=== PATIENT | male | born 1945 | race Caucasian/White ===

== ENCOUNTER 2017-12-29 18:28 | Emergency (ER) | payer MEDICARE, OTHER ==
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
[2017-12-29] MEDS ORDERED: MULT1TAB64 PO (18:40)
[2017-12-29] MEDS ORDERED: ALB6.7R INH (18:42)
[2017-12-29] MEDS ORDERED: DIPH-740 PO (18:42)
[2017-12-29] MEDS ORDERED: BRIO (18:42)
[2017-12-29] MEDS ORDERED: [UNRECOGNIZED DRUG - CODE] PO (18:42)
[2017-12-29 19:29] LABS: PLATELET COUNT, AUTOMATED 148 K/uL (150-450)
[2017-12-29] MEDS ORDERED: hydrOXYzine PAMOATE 25 MG CAP PO ONE (19:45)
[2017-12-29] MEDS ORDERED: ARIPiprazole 10 MG TAB PO ONE (19:45)
[2017-12-29] MEDS ORDERED: LORazepam 1 MG TAB PO ONE (19:45)
[2017-12-29 20:42] VITALS: BP 131/62
[2017-12-30 06:46] LABS: PLATELET COUNT, AUTOMATED 147 K/uL (150-450)
== END 2017-12-29 22:27 ==
LOC: ER 18:42
DX: F23 Brief psychotic disorder (principal); F31.9 Bipolar disorder, unspecified; C91.10 Chronic lymphocytic leukemia of B-cell type not having achieved remission
CPT/HCPCS: 36415; 80164; 80305; 81001; 83735; 84443; 85025; 99285; G0480; 80320; 80329; 82040; 82247; 82310; 82374; 82435; 82565; 82947; 84075; 84132; 84155; 84295; 84450; 84460; 84520

== ENCOUNTER 2017-12-29 21:58 | Inpatient (IN) | payer MEDICARE ==
[~2017-12-29] VITALS: Ht 182.9 cm; Wt 86.2 kg
[~2017-12-29 21:58] MED LIST: ALB6.7R INH; BRIO; DIPH-740 PO; MULT1TAB64 PO; [UNRECOGNIZED DRUG - CODE] PO
[2017-12-29] MEDS ORDERED: risperiDONE 1 MG TAB PO SCH (23:00)
[2017-12-29] MEDS ORDERED: LORazepam 1 MG TAB PO PRN (23:05)
[2017-12-29] MEDS ORDERED: MAG HYD/AL HYD/SIMETH 30ML UDC PO PRN (23:05)
[2017-12-29 23:53] VITALS: BP 133/74
[2017-12-30] MEDS ORDERED: NICOTINE INH SYSTEM 10 MG/INH INH PRN (00:45)
[2017-12-30] MEDS: ACETAMINOPHEN 325 MG TAB PO PRN ×2 (03:12→07:51)
[2017-12-30] MEDS: hydrOXYzine PAMOATE 25 MG CAP PO PRN ×2 (04:12→11:27)
[2017-12-30] MEDS: MULTIVITAMINS PO SCH (08:00)
[2017-12-30] MEDS: NICOTINE POLACRILEX 2 MG GUM PO PRN ×4 (08:11→20:26)
--- NOTE | 2017-12-30 10:38 | EKG ---
FACILITY: [facility] PATIENT NAME: KAYLEY BREWER : [id number] MR: [id number] V: [id number] EXAM DATE: ORDERING PHYSICIAN: JAI NASCIMENTO TECHNOLOGIST: Ronald Flores Reason : Blood Pressure : / mmHG Vent. Rate : 073 BPM Atrial Rate : 073 BPM P-R Int : 160 ms QRS Dur : 084 ms QT Int : 380 ms P-R-T Axes : 057 017 061 degrees QTc Int : 418 ms Sinus rhythm Poor R wave progression anteriorly Nonspecific ST findings anteriorly Abnormal ECG No previous ECGs available Confirmed by VERÓNICA GUARDADO ([id number]) on 12/31/2017 5:33:39 AM Referred By: Confirmed By:VERÓNICA GUARDADO
[2017-12-30] MEDS ORDERED: DIVALPROEX SOD ER 500 MG TABSR PO ONE (11:20)
[2017-12-30] MEDS: busPIRone HCL 5 MG TAB PO SCH ×2 (11:26→20:25)
[2017-12-30] MEDS: SALMETEROL/FLUTIC 100/50 1 INH INH SCH (13:19)
[2017-12-30] MEDS ORDERED: NS 0.9% 150 ML BAG 150 ML ONE (15:46)
[2017-12-30] MEDS ORDERED: IOPAMIDOL 76% 75 ML INFUS BTL 75 ML ONE (15:46)
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
[2017-12-30] MEDS ORDERED: traMADol 50 MG TAB PO ONE (17:00)
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
[2017-12-30] MEDS: chlorproMAZINE 25 MG TAB PO SCH (19:05)
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
[2017-12-30] MEDS: DIVALPROEX SOD ER 500 MG TABSR PO SCH (20:25)
[2017-12-30] MEDS: MELATONIN 3 MG TAB PO SCH (20:25)
[2017-12-30] MEDS ORDERED: chlorproMAZINE 25 MG TAB PO SCH (21:00)
[2017-12-30 22:27] VITALS: BP 119/67
[2017-12-31] MEDS: hydrOXYzine PAMOATE 25 MG CAP PO PRN (00:40)
[2017-12-31] MEDS: NICOTINE POLACRILEX 2 MG GUM PO PRN ×8 (00:40→21:17)
[2017-12-31] MEDS: chlorproMAZINE 25 MG TAB PO SCH (00:40)
[2017-12-31 02:55] VITALS: BP 142/74
[2017-12-31] MEDS: SALMETEROL/FLUTIC 100/50 1 INH INH SCH (04:57)
[2017-12-31] MEDS: traMADol 50 MG TAB PO PRN (06:05)
[2017-12-31] MEDS: MULTIVITAMINS PO SCH (08:25)
[2017-12-31] MEDS: DIVALPROEX SOD ER 500 MG TABSR PO SCH ×2 (08:26→21:11)
[2017-12-31] MEDS: busPIRone HCL 5 MG TAB PO SCH ×2 (08:26→21:11)
[2017-12-31 11:00] VITALS: BP 138/60
[2017-12-31] MEDS ORDERED: chlorproMAZINE 25 MG TAB PO PRN (11:35)
--- NOTE | 2017-12-31 11:42 | BHS Progress Note ---
S - Subjective Progress Notes Subjective Patient is improved today with overall lessening of intensity of delusional thinking involving his creation of the town "utopia" Patient insistent this AM that his future intentions involve "joining the [employer]" since he is more physically fit then the young generation. Patient sleep has improved, and he will continue thorazine tonight, will have depakote level in AM, along with routine labs. No other concerns. Suicidal Ideation: None Homicidal Ideation: None [facility] - Objective Physical Exam Vital Signs Vital Signs Date Time Temp Pulse Resp B/P (MAP) Pulse Ox O2 Delivery O2 Flow Rate FiO2 12/31/17 11:00 99.2 94 16 138/60 (86) 90 Room Air 12/31/17 02:55 2.0 Hematology Test 12/30/17 00:00 Free Thyroxine 1.07 ng/dl (0.78-2.19) Chemistry Test 12/30/17 00:00 Free Thyroxine 1.07 ng/dl (0.78-2.19) Muscle Strength and Tone: WNL Gait and Station: Steady [facility] Medications Reviewed: Side Effects, Benefits of Medication, Risks Allergies Reviewed: Yes Mental Status Exam General Appearance: Casual, Well Groomed, Good Eye Contact, Cooperative, Polite , Good Interaction, No Unkept, No Tearful, No Psychomotor Agitation, No Psychomotor Retardation, No Bizarre Mannerisms, No Tics Speech: Clear, Spontaneous, Normal Rate, Normal Rhythm, Normal Volume, Normal Tone, No Delayed, No Slurred, No Garbled, No Rambling, No Inappropriate Mood: Hyperthymic (manic like state, frustration evident. ) Affect: Full and Appropriate, Anxious, Agitated (mildly) Thought Process: Loose Associations, Flight of Ideas (less so today) Thought Content: No Suicidal Ideation, No Homicidal Ideation, Delusions ( grandiose themes), No Auditory Halllucinations, No Visual Hallucinations, No Thought Broadcasting, Ideas of Reference, Obsessions, No Compulsions Cognition: Alert & Oriented-Person, Alert & Oriented-Place, Alert & Oriented- Time (partially), No Jquud-Vfhbhsoz-Ynsjofxkx Memory: Immediate, Recent, Remote Intelligence: Average Insight Judgment: Poor (currentlky impaired) [facility] Assessment and Plan [id number] Encounter Date: Dec 31, 2017 [id number]-[id number] Encounter Time: 11:00 BHS Plan: Necessary Precautions, Individual/Group Therapy, Admin/Titrate Meds, Educate Patient Tobacco Medications: Started Multpiple Antipsychotics Used: No Problems: (1) Bipolar disorder with psychotic features Optional Permanent Comment: appears to have been likely caused by prednisone. Last Edited By: Jai Nascimento on Dec 31, 2017 11:41 Status: Acute Condition 1. continue treatment. 2. labs in AM. 3. treatment team meeting in AM. JAI NASCIMENTO MD Dec 31, 2017 11:42
[2017-12-31] MEDS: ALBUTEROL SULFATE 90 MCG/ACT 8.5 GM HNH INH PRN (16:03)
[2017-12-31 16:50] VITALS: BP 145/68
--- NOTE | 2017-12-31 19:33 | RADIOLOGY IMAGING REPORT ---
FACILITY: [facility] PATIENT NAME: Freddy Hagen : 1945 MR: [id number] V: [id number] EXAM DATE: ORDERING PHYSICIAN: JAI NASCIMENTO TECHNOLOGIST: Location: [facility] Patient: Ferddy Hagen : 1945 Visit/Account:[id number] Date of Sevice: 12/31/2017 CHEST PA AND LAT HISTORY: Course breath sounds COMPARISON: None FINDINGS: Cardiomediastinal contours: Right hilum is enlarged. Cardiac silhouette is normal size. Lungs and pleura: Normal Bones/soft tissues: Normal Other findings: None significant IMPRESSION: 1. Negative for acute consolidation or edema. 2. Right hilar enlargement. This could be vascular although lymphadenopathy also within the different ial. Recommend chest CT with contrast for further evaluation. Report Dictated By: José Luis Faust MD at 12/31/2017 7:28 PM Report E-Signed By: José Luis Faust MD at 12/31/2017 7:30 PM [id number]
[2017-12-31] MEDS ORDERED: chlorproMAZINE 25 MG TAB PO SCH (21:00)
[2017-12-31] MEDS: MELATONIN 3 MG TAB PO SCH (21:11)
[2018-01-01] MEDS: NICOTINE POLACRILEX 2 MG GUM PO PRN ×7 (00:38→22:21)
[2018-01-01] MEDS: hydrOXYzine PAMOATE 25 MG CAP PO PRN (01:49)
[2018-01-01 05:52] VITALS: BP 124/62
[2018-01-01] MEDS: SALMETEROL/FLUTIC 100/50 1 INH INH SCH (06:12)
[2018-01-01 06:59] LABS: PLATELET COUNT, AUTOMATED 128 K/uL (150-450)
[2018-01-01] MEDS: MULTIVITAMINS PO SCH (08:00)
[2018-01-01] MEDS: DIVALPROEX SOD ER 500 MG TABSR PO SCH ×2 (08:00→20:33)
[2018-01-01] MEDS: busPIRone HCL 5 MG TAB PO SCH ×2 (08:00→20:32)
[2018-01-01 09:10] VITALS: BP 108/50
[2018-01-01] MEDS: traMADol 50 MG TAB PO PRN (09:12)
--- NOTE | 2018-01-01 11:31 | BHS Progress Note ---
[facility] - Subjective Progress Notes Subjective Patient remains in control of his behaviors today, although frustrated. Patient seemingly trying to distort the real purpose of his 10 day extension hearing this AM to his on the phone, and son and daughter in law, present in room. Will try increase in thorazine tonight, and continue depakote at current dose. Suicidal Ideation: None Homicidal Ideation: None [facility] - Objective Physical Exam Vital Signs Vital Signs Date Time Temp Pulse Resp B/P (MAP) Pulse Ox O2 Delivery O2 Flow Rate FiO2 01/01/18 05:52 100.1 97 124/62 (82) 82 Room Air 12/31/17 17:05 2.0 12/31/17 16:50 16 Muscle Strength and Tone: WNL Gait and Station: Steady [facility] Medications Reviewed: Side Effects, Benefits of Medication, Risks Allergies Reviewed: Yes Mental Status Exam General Appearance: Casual, Well Groomed, Good Eye Contact, Cooperative, Polite , Good Interaction, No Unkept, No Tearful, No Psychomotor Agitation, No Psychomotor Retardation, No Bizarre Mannerisms, No Tics Speech: Clear, Spontaneous, Normal Rate, Normal Rhythm, Normal Volume, Normal Tone, No Delayed, No Slurred, No Garbled, No Rambling, No Inappropriate Mood: Hyperthymic (manic like state, frustration evident. ) Affect: Full and Appropriate, Anxious, Agitated (mildly) Thought Process: Loose Associations, Flight of Ideas (less so today) Thought Content: No Suicidal Ideation, No Homicidal Ideation, Delusions ( grandiose themes), No Auditory Halllucinations, No Visual Hallucinations, No Thought Broadcasting, Ideas of Reference, Obsessions, No Compulsions Cognition: Alert & Oriented-Person, Alert & Oriented-Place, Alert & Oriented- Time (partially), No Xxkxv-Azwmffvg-Cnzvutbdz Memory: Immediate, Recent, Remote Intelligence: Average Insight Judgment: Poor (currentlky impaired) Result Diagram: 01/01/1843 01/01/1843 [facility] Assessment and Plan Vbgi-ib-Fjhe Encounter Date: Jan 01, 2018 Kilm-hg-Kosv Encounter Time: 11:00 [facility] Plan: Necessary Precautions, Individual/Group Therapy, Admin/Titrate Meds, Educate Patient Tobacco Medications: Started Multpiple Antipsychotics Used: No Problems: (1) Bipolar disorder with psychotic features Optional Permanent Comment: appears to have been likely caused by prednisone. Last Edited By: Jai Nascimento on Dec 31, 2017 11:41 Status: Acute Condition 1. increase thorazine. 2. continue treatment. JAI NASCIMENTO MD Jan 01, 2018 11:31
[2018-01-01] MEDS ORDERED: chlorproMAZINE 25 MG TAB PO PRN (11:55)
[2018-01-01] MEDS: ALBUTEROL SULFATE 90 MCG/ACT 8.5 GM HNH INH PRN ×2 (12:42→18:18)
--- NOTE | 2018-01-01 14:00 | EKG ---
FACILITY: [facility] [place] PATIENT NAME: KAYLEY BREWER : [id number] MR: [id number] V: [id number] EXAM DATE: ORDERING PHYSICIAN: JAI NASCIMENTO TECHNOLOGIST: GOGO Flores Reason : ANTIPYSCHOTIC DRUGS Blood Pressure : / mmHG Vent. Rate : 115 BPM Atrial Rate : 115 BPM P-R Int : 160 ms QRS Dur : 086 ms QT Int : 310 ms P-R-T Axes : 069 053 059 degrees QTc Int : 428 ms Sinus tachycardia Septal infarct (cited on or before 01-JAN-2018) Abnormal ECG When compared with ECG of 30-DEC-2017 10:32, Previous ECG has undetermined rhythm, needs review Confirmed by YANIQUE GOVEA ([id number]) on 01/01/2018 3:54:26 PM Referred By: Confirmed By:YANIQUE GOVEA
[2018-01-01 18:10] VITALS: BP 142/70
[2018-01-01] MEDS ORDERED: ACETAMINOPHEN 325 MG TAB PO PRN (18:30)
[2018-01-01] MEDS: MELATONIN 3 MG TAB PO SCH (20:31)
[2018-01-01] MEDS ORDERED: chlorproMAZINE 25 MG TAB PO SCH (21:00)
[2018-01-02] MEDS: traMADol 50 MG TAB PO PRN (01:48)
[2018-01-02 02:54] VITALS: BP 149/94
[2018-01-02] MEDS: SALMETEROL/FLUTIC 100/50 1 INH INH SCH (05:28)
--- NOTE | 2018-01-02 06:34 | EKG ---
FACILITY: [facility] PATIENT NAME: KAYLEY BREWER : [id number] MR: [id number] V: [id number] EXAM DATE: ORDERING PHYSICIAN: FABRIZIO GATES TECHNOLOGIST: GONZALO Test Reason : CHEST PAIN Blood Pressure : / mmHG Vent. Rate : 086 BPM Atrial Rate : 086 BPM P-R Int : 158 ms QRS Dur : 090 ms QT Int : 366 ms P-R-T Axes : 074 067 069 degrees QTc Int : 437 ms Sinus rhythm Premature atrial beat Otherwise normal ECG When compared with ECG of 01-JAN-2018 13:42, No significant change was found Confirmed by KRIS COLÓN ([id number]) on 01/02/2018 10:32:43 AM Referred By: Confirmed By:KRIS COLÓN
[2018-01-02] MEDS: busPIRone HCL 5 MG TAB PO SCH ×2 (08:09→22:09)
[2018-01-02] MEDS: DIVALPROEX SOD ER 500 MG TABSR PO SCH ×2 (08:09→22:09)
[2018-01-02] MEDS: MULTIVITAMINS PO SCH (08:09)
[2018-01-02] MEDS ORDERED: DIVALPROEX SOD ER 500 MG TABSR PO ONE (09:05)
[2018-01-02 09:50] VITALS: BP 112/50
[2018-01-02] MEDS: ALBUTEROL SULFATE 90 MCG/ACT 8.5 GM HNH INH PRN (12:42)
--- NOTE | 2018-01-02 13:01 | BHS Progress Note ---
[facility] - Subjective Progress Notes Subjective "I want to go home. I slept better last night." Requesting to have conference call with son and , insistent on calling family although unable to reach by phone Treatment team meeting set for Thursday01/04/18. With increased dose of Thorazine last pm, obtained only four hours sleep Increase Thorazine dose tonight per Dr. Wyatt, keep HOB elevated and ensure oxygen is kept on Denies racing thoughts, denies auditory/visual hallucinations, behavior controlled well without outbursts Speech nonpressured, discusses leukemia treatment, states last chemotherapy 3 months ago, didn't tolerate well with resulting pneumonitis Suicidal Ideation: None Homicidal Ideation: None S - Objective Physical Exam Vital Signs Vital Signs Date Time Temp Pulse Resp B/P (MAP) Pulse Ox O2 Delivery O2 Flow Rate FiO2 01/02/18 09:50 99.2 95 16 112/50 (70) 87 Room Air 12/31/17 17:05 2.0 Muscle Strength and Tone: WNL Gait and Station: Steady [facility] Medications Reviewed: Side Effects, Benefits of Medication, Risks Allergies Reviewed: Yes Mental Status Exam General Appearance: Casual, Well Groomed, Good Eye Contact, Cooperative, Polite , Good Interaction, No Unkept, No Tearful, No Psychomotor Agitation, No Psychomotor Retardation, No Bizarre Mannerisms, No Tics Speech: Clear, Spontaneous, Normal Rate, Normal Rhythm, Normal Volume, Normal Tone, No Delayed, No Slurred, No Garbled, No Rambling, No Inappropriate Mood: Euthymic, No Hyperthymic (less fluctuation than documented) Affect: Full and Appropriate, Anxious, Agitated (mildly) Thought Process: Loose Associations, Flight of Ideas (less so today) Thought Content: No Suicidal Ideation, No Homicidal Ideation, Delusions ( grandiose themes), No Auditory Halllucinations, No Visual Hallucinations, No Thought Broadcasting, No Ideas of Reference, No Obsessions, No Compulsions Cognition: Alert & Oriented-Person, Alert & Oriented-Place, Alert & Oriented- Time (partially; disoriented to date), No Xukjc-Kotthesa-Txnculqri Memory: Immediate, Recent, Remote Intelligence: Average Insight Judgment: Poor (currentlky impaired) Result Diagram: 01/01/18 0643 01/01/18 0643 Lab Allergies Coded Allergies rituximab (Verified Allergy, Severe, UNKNOWN, 12/29/17) Penicillins (Verified Allergy, Unknown, 12/29/17) aspirin (Verified Allergy, Unknown, 12/30/17) ibuprofen (Verified Adverse Reaction, Intermediate, 12/30/17) [facility] Assessment and Plan Bbqj-lc-Wroq Encounter Date: Jan 02, 2018 Kmuo-ji-Bqqb Encounter Time: 12:57 [facility] Plan: Necessary Precautions, Individual/Group Therapy, Admin/Titrate Meds, Educate Patient Tobacco Medications: Started Multpiple Antipsychotics Used: Yes Problems: (1) Bipolar disorder with psychotic features Optional Permanent Comment: appears to have been likely caused by prednisone. Last Edited By: Eduardo Wyatt on Dec 31, 2017 11:41 Status: Acute Condition Continue current medication and treatment Increase Thorazine dose tonight, addition of Valium, keep HOB elevated, Oxygen to remain on during night, continuous pulse oximetry Fall precautions Continue seeking appropriate placement upon discharge, coordination of care with family Vital Signs Date Time Temp Pulse Resp B/P (MAP) Pulse Ox O2 Delivery O2 Flow Rate FiO2 01/02/18 06:15 97.9 75 74 Room Air 01/02/18 02:54 149/94 (112) 01/01/18 09:10 16 12/31/17 17:05 2.0 Allergies Coded Allergies rituximab (Verified Allergy, Severe, UNKNOWN, 12/29/17) Penicillins (Verified Allergy, Unknown, 12/29/17) aspirin (Verified Allergy, Unknown, 12/30/17) ibuprofen (Verified Adverse Reaction, Intermediate, 12/30/17) FABRIZIO AGTES NP Jan 02, 2018 13:00
[2018-01-02] MEDS ORDERED: chlorproMAZINE 25 MG TAB PO SCH (21:00)
[2018-01-02] MEDS ORDERED: DIAZEPAM 10 MG TAB PO ONE (21:00)
[2018-01-02 21:15] VITALS: BP 119/64
[2018-01-02] MEDS: MELATONIN 3 MG TAB PO SCH (22:06)
[2018-01-02] MEDS: hydrOXYzine PAMOATE 25 MG CAP PO SCH (22:09)
[2018-01-03] VITALS (7 sets, daily range): BP systolic 118–143; BP diastolic 54–77
[2018-01-03 06:43] LABS: PLATELET COUNT, AUTOMATED 113 K/uL (150-450)
[2018-01-03] MEDS: busPIRone HCL 5 MG TAB PO SCH ×2 (08:39→21:39)
[2018-01-03] MEDS: MULTIVITAMINS PO SCH (08:39)
[2018-01-03] MEDS: DIVALPROEX SOD ER 500 MG TABSR PO SCH ×2 (08:39→21:38)
[2018-01-03] MEDS: SALMETEROL/FLUTIC 100/50 1 INH INH SCH (08:50)
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
[2018-01-03] MEDS ORDERED: chlorproMAZINE 25 MG TAB PO SCH (21:00)
[2018-01-03] MEDS ORDERED: DIAZEPAM 10 MG TAB PO SCH (21:00)
[2018-01-03] MEDS: hydrOXYzine PAMOATE 25 MG CAP PO SCH (21:39)
[2018-01-03] MEDS: MELATONIN 3 MG TAB PO SCH (21:40)
[2018-01-04] MEDS: SALMETEROL/FLUTIC 100/50 1 INH INH SCH (05:55)
[2018-01-04 06:00] VITALS: BP 114/68
--- NOTE | 2018-01-04 06:01 | EKG ---
FACILITY: [facility] PATIENT NAME: KAYLEY BREWER : [id number] MR: [id number] V: [id number] EXAM DATE: ORDERING PHYSICIAN: JAI NASCIMENTO TECHNOLOGIST: GONZALO Test Reason : CHEST PAIN Blood Pressure : / mmHG Vent. Rate : 094 BPM Atrial Rate : 094 BPM P-R Int : 136 ms QRS Dur : 084 ms QT Int : 340 ms P-R-T Axes : 000 091 052 degrees QTc Int : 425 ms Normal sinus rhythm Rightward axis Borderline ECG When compared with ECG of 03-JAN-2018 08:52, NH interval decreased with a different morphology in the limb leads, now. A junctional rhythm vs new atrial foci Confirmed by MISTI ALSTON ([id number]) on 01/04/2018 6:43:38 AM Referred By: Confirmed By:MISTI ALSTON
[2018-01-04 06:46] LABS: PLATELET COUNT, AUTOMATED 95 K/uL (150-450)
[2018-01-04] MEDS: DIVALPROEX SOD ER 500 MG TABSR PO SCH ×2 (09:58→21:32)
[2018-01-04] MEDS: busPIRone HCL 5 MG TAB PO SCH ×2 (09:58→21:34)
[2018-01-04] MEDS: MULTIVITAMINS PO SCH (09:58)
[2018-01-04 11:04] VITALS: BP 111/58
--- NOTE | 2018-01-04 13:55 | BHS Progress Note ---
[facility] - Subjective Progress Notes Subjective Patient's dorita now resolving, will discontinue valium tonight, and will decrease thorazine. Will continue depakote at 1000mg BID. Will repeat depakote level in AM. Will start to plan for suitable discharge plan as well, but will schedule 2nd hearing in this patient who had recent lengthy hospitalization and decompensated quickly upon discharge. Patient not promoting delusional content today. Suicidal Ideation: None Homicidal Ideation: None [facility] - Objective Physical Exam Vital Signs Vital Signs Date Time Temp Pulse Resp B/P (MAP) Pulse Ox O2 Delivery O2 Flow Rate FiO2 01/04/18 06:00 100.6 88 19 114/68 (83) 93 Nasal Cannula 3.5 Muscle Strength and Tone: WNL Gait and Station: Steady (requires 1:1 monitoring with slightly unsteady gait this am), Unsteady [facility] Medications Reviewed: Side Effects, Benefits of Medication, Risks Allergies Reviewed: Yes Mental Status Exam General Appearance: Casual, Well Groomed, No Good Eye Contact, Cooperative, Polite, Good Interaction, No Unkept, No Tearful, No Psychomotor Agitation, No Psychomotor Retardation, No Bizarre Mannerisms, No Tics, Other (groggy; limited eye contact) Speech: Clear, Spontaneous, Normal Rate, Normal Rhythm, Normal Volume, Normal Tone, No Delayed, No Slurred, No Garbled, No Rambling, No Inappropriate Mood: No Dysthmic/Depressed, Euthymic (smiles, interacts appropriately), No Hyperthymic (less fluctuation than documented) Affect: Full and Appropriate, Calm, No Anxious, No Agitated Thought Process: Organized, Goal Directed, No Loose Associations, No Flight of Ideas (less so today) Thought Content: No Suicidal Ideation, No Homicidal Ideation, No Delusions ( may be underlying), No Auditory Halllucinations, No Visual Hallucinations, No Thought Broadcasting, No Ideas of Reference, No Obsessions, No Compulsions Cognition: Alert & Oriented-Person, Alert & Oriented-Place, Alert & Oriented- Time, No Fjhds-Uyhiromx-Addxfycuj (partially) Memory: Immediate, Recent, Remote Intelligence: Average Insight Judgment: Poor (currentlly impaired) Result Diagram: 01/04/1863001/04/18630 [facility] Assessment and Plan Mtel-rh-Bogt Encounter Date: Jan 04, 2018 Wabz-da-Ioff Encounter Time: 09:30 [facility] Plan: Necessary Precautions, Individual/Group Therapy, Admin/Titrate Meds, Educate Patient Tobacco Medications: Started Multpiple Antipsychotics Used: Yes Problems: (1) Bipolar disorder with psychotic features Optional Permanent Comment: appears to have been likely initiated by prednisone. Last Edited By: Jai Nacsimento on Jan 04, 2018 13:54 Status: Acute Condition 1. continue treatment. 2. schedule next hearing 3. lower thorazine, and stop diazepam. JAI NASCIMENTO MD Jan 04, 2018 13:55
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
[2018-01-04] MEDS ORDERED: chlorproMAZINE 25 MG TAB PO SCH (21:00)
[2018-01-04] MEDS: hydrOXYzine PAMOATE 25 MG CAP PO SCH (21:33)
[2018-01-04] MEDS: MELATONIN 3 MG TAB PO SCH (21:33)
[2018-01-05 05:43] LABS: PLATELET COUNT, AUTOMATED 84 K/uL (150-450)
[2018-01-05 05:57] VITALS: BP 126/61
[2018-01-05] MEDS: SALMETEROL/FLUTIC 100/50 1 INH INH SCH (06:02)
[2018-01-05] MEDS: busPIRone HCL 5 MG TAB PO SCH ×2 (08:26→20:32)
[2018-01-05] MEDS: MULTIVITAMINS PO SCH (08:26)
[2018-01-05] MEDS ORDERED: DIVALPROEX SOD ER 500 MG TABSR PO SCH ×2 (09:00→21:00)
--- NOTE | 2018-01-05 09:11 | BHS Progress Note ---
BHS - Subjective Progress Notes Subjective Patient continues to report good sleep, and this is supported by nursing staff. Patient's manic behavior does seem to be resolved now. Thrombocytopenia likely associated with depakote continues, and will therefore decrease depakote today. Will decrease thorazine as well and continue to monitor. Appetite good, no other concerns. Suicidal Ideation: None Homicidal Ideation: None BHS - Objective Physical Exam Vital Signs Vital Signs Date Time Temp Pulse Resp B/P (MAP) Pulse Ox O2 Delivery O2 Flow Rate FiO2 01/05/18 05:57 100.6 88 126/61 (82) 93 Nasal Cannula 3.5 01/05/18 03:34 20 Hematology Test 12/30/17 00:00 01/01/18 06:43 01/01/18 20:23 01/05/18 05:34 Free Thyroxine 1.07 ng/dl (0.78-2.19) Free Triiodothyronine 3.9 pg/mL (2.4-4.2) Magnesium Level 1.8 mg/dl (1.7-2.2) Influenza Virus Type A (PCR) Negative (NEGATIVE) Influenza Virus Type B (PCR) Negative (NEGATIVE) Red Blood Count 4.78 M/uL (4.00-5.60) Mean Corpuscular Volume 78.3 fL (80.0-96.0) Mean Corpuscular Hemoglobin 26.9 pg (26.0-33.0) Mean Corpuscular Hemoglobin Concent 34.3 g/dL (32.0-36.0) Red Cell Distribution Width 18.2 % (11.5-14.5) Mean Platelet Volume 7.6 fL (7.2-11.1) Neutrophils (%) (Auto) 14.7 % (39.4-72.5) Lymphocytes (%) (Auto) 81.5 % (17.6-49.6) Monocytes (%) (Auto) 3.4 % (4.1-12.4) Eosinophils (%) (Auto) 0.1 % (0.4-6.7) Basophils (%) (Auto) 0.3 % (0.3-1.4) Nucleated RBC Relative Count (auto) 0.1 /100WBC Neutrophils # (Auto) 5.0 K/uL (2.0-7.4) Lymphocytes # (Auto) 28.0 K/uL (1.3-3.6) Monocytes # (Auto) 1.2 K/uL (0.3-1.0) Eosinophils # (Auto) 0.0 K/uL (0.0-0.5) Basophils # (Auto) 0.1 K/uL (0.0-0.1) Nucleated RBC Absolute Count (auto) 0.02 K/uL Peripheral Blood Smear Yes Y/N Sodium Level 128 mmol/L (137-145) Potassium Level 4.6 mmol/L (3.5-5.0) Chloride Level 95 mmol/L (98-107) Carbon Dioxide Level 24 mmol/L (22-30) Blood Urea Nitrogen 14 mg/dl (9-21) Creatinine 0.90 mg/dl (0.66-1.25) Glomerular Filtration Rate Calc > 60.0 Random Glucose 76 mg/dl (75-110) Calcium Level 8.7 mg/dl (8.4-10.2) Total Bilirubin 0.7 mg/dl (0.2-1.3) Aspartate Amino Transf (AST/SGOT) 51 U/L (0-35) Alanine Aminotransferase (ALT/SGPT) 60 U/L (0-56) Alkaline Phosphatase 168 U/L (0-126) Total Protein 4.6 gm/dl (6.3-8.2) Albumin 2.5 g/dl (3.5-5.0) Valproic Acid (Depakene) Level 79.0 ug/ml Chemistry Test 12/30/17 00:00 01/01/18 06:43 01/01/18 20:23 01/05/18 05:34 Free Thyroxine 1.07 ng/dl (0.78-2.19) Free Triiodothyronine 3.9 pg/mL (2.4-4.2) Magnesium Level 1.8 mg/dl (1.7-2.2) Influenza Virus Type A (PCR) Negative (NEGATIVE) Influenza Virus Type B (PCR) Negative (NEGATIVE) White Blood Count 34.3 k/uL (4.5-11.0) Red Blood Count 4.78 M/uL (4.00-5.60) Hemoglobin 12.8 g/dL (14.0-18.0) Hematocrit 37.4 % (42.0-52.0) Mean Corpuscular Volume 78.3 fL (80.0-96.0) Mean Corpuscular Hemoglobin 26.9 pg (26.0-33.0) Mean Corpuscular Hemoglobin Concent 34.3 g/dL (32.0-36.0) Red Cell Distribution Width 18.2 % (11.5-14.5) Platelet Count 84 K/uL (150-450) Mean Platelet Volume 7.6 fL (7.2-11.1) Neutrophils (%) (Auto) 14.7 % (39.4-72.5) Lymphocytes (%) (Auto) 81.5 % (17.6-49.6) Monocytes (%) (Auto) 3.4 % (4.1-12.4) Eosinophils (%) (Auto) 0.1 % (0.4-6.7) Basophils (%) (Auto) 0.3 % (0.3-1.4) Nucleated RBC Relative Count (auto) 0.1 /100WBC Neutrophils # (Auto) 5.0 K/uL (2.0-7.4) Lymphocytes # (Auto) 28.0 K/uL (1.3-3.6) Monocytes # (Auto) 1.2 K/uL (0.3-1.0) Eosinophils # (Auto) 0.0 K/uL (0.0-0.5) Basophils # (Auto) 0.1 K/uL (0.0-0.1) Nucleated RBC Absolute Count (auto) 0.02 K/uL Peripheral Blood Smear Yes Y/N Glomerular Filtration Rate Calc > 60.0 Calcium Level 8.7 mg/dl (8.4-10.2) Total Bilirubin 0.7 mg/dl (0.2-1.3) Aspartate Amino Transf (AST/SGOT) 51 U/L (0-35) Alanine Aminotransferase (ALT/SGPT) 60 U/L (0-56) Alkaline Phosphatase 168 U/L (0-126) Total Protein 4.6 gm/dl (6.3-8.2) Albumin 2.5 g/dl (3.5-5.0) Valproic Acid (Depakene) Level 79.0 ug/ml Toxicology Test 01/05/18 05:34 Valproic Acid (Depakene) Level 79.0 ug/ml Muscle Strength and Tone: WNL Gait and Station: Steady (requires 1:1 monitoring with slightly unsteady gait this am), Unsteady S Medications Reviewed: Side Effects, Benefits of Medication, Risks Allergies Reviewed: Yes Mental Status Exam General Appearance: Casual, Well Groomed, Good Eye Contact, Cooperative, Polite , Good Interaction, No Unkept, No Tearful, No Psychomotor Agitation, No Psychomotor Retardation, No Bizarre Mannerisms, No Tics Speech: Clear, Spontaneous, Normal Rate, Normal Rhythm, Normal Volume, Normal Tone, No Delayed, No Slurred, No Garbled, No Rambling, No Inappropriate Mood: No Dysthmic/Depressed, Euthymic (smiles, interacts appropriately), No Hyperthymic Affect: Full and Appropriate, Calm, No Anxious, No Agitated Thought Process: Organized, Goal Directed, No Loose Associations, No Flight of Ideas (minimal) Thought Content: No Suicidal Ideation, No Homicidal Ideation, No Delusions ( may be underlying), No Auditory Halllucinations, No Visual Hallucinations, No Thought Broadcasting, No Ideas of Reference, No Obsessions, No Compulsions Cognition: Alert & Oriented-Person, Alert & Oriented-Place, Alert & Oriented- Time, No Ugdxj-Gzydsdxw-[id number] (Only partially, at times discusses plans to make several millions buying autos and creating a utopia.) Memory: Immediate, Recent, Remote Intelligence: Average Insight Judgment: Poor (Currently impaired, but improving) Result Diagram: 01/05/18 0534 01/05/18 0534 [facility] Assessment and Plan [id number] Encounter Date: Jan 05, 2018 [id number] Encounter Time: 08:40 [facility] Plan: Necessary Precautions, Individual/Group Therapy, Admin/Titrate Meds, Educate Patient Tobacco Medications: Started Multpiple Antipsychotics Used: Yes Problems: (1) Bipolar disorder with psychotic features Optional Permanent Comment: appears to have been likely initiated by prednisone. Last Edited By: Jai Nascimento on Jan 04, 2018 13:54 Status: Acute Condition 1. depakote decrease to 500 mg BID 2. decrease thorazine to 50mg QHs. 3. look for apprpriate placement upon discharge. 4. will go forward with plans for hearing in case other disposition cannot be executed. JAI NASCIMENTO MD Jan 05, 2018 09:11
[2018-01-05 10:45] VITALS: BP 104/62
[2018-01-05] MEDS: hydrOXYzine PAMOATE 25 MG CAP PO SCH (20:31)
[2018-01-05] MEDS: DIVALPROEX SOD ER 500 MG TABSR PO SCH (20:32)
[2018-01-05] MEDS: MELATONIN 3 MG TAB PO SCH (20:32)
[2018-01-05] MEDS ORDERED: chlorproMAZINE 25 MG TAB PO SCH (21:00)
[2018-01-06] MEDS: hydrOXYzine PAMOATE 25 MG CAP PO PRN (02:10)
[2018-01-06] MEDS: traMADol 50 MG TAB PO PRN (02:10)
[2018-01-06 02:18] VITALS: BP 118/63
[2018-01-06] MEDS: SALMETEROL/FLUTIC 100/50 1 INH INH SCH (05:58)
[2018-01-06 07:01] LABS: PLATELET COUNT, AUTOMATED 76 K/uL (150-450)
[2018-01-06] MEDS: SODIUM CHLORIDE 1 GR TAB PO SCH (08:21)
[2018-01-06] MEDS: DIVALPROEX SOD ER 500 MG TABSR PO SCH (08:21)
[2018-01-06] MEDS: MULTIVITAMINS PO SCH (08:21)
[2018-01-06] MEDS: busPIRone HCL 5 MG TAB PO SCH ×2 (08:21→21:20)
[2018-01-06] MEDS: ALBUTEROL SULFATE 90 MCG/ACT 8.5 GM HNH INH PRN (09:16)
[2018-01-06 09:31] VITALS: BP 116/63
--- NOTE | 2018-01-06 09:36 | BHS Progress Note ---
S - Subjective Progress Notes Subjective Patient doing well this AM, will continue to monitor hyponatremia, and thrombocytopenia, unfortunately likely related to Depakote administration. May have to discontinue Depakote, at this time, and look into another mood stabilizer if necessary. will continue treatment. and have hearing set. Suicidal Ideation: None Homicidal Ideation: None [facility] - Objective Physical Exam Vital Signs Vital Signs Date Time Temp Pulse Resp B/P (MAP) Pulse Ox O2 Delivery O2 Flow Rate FiO2 01/06/18 02:18 100.0 95 118/63 (81) 93 Nasal Cannula 3.0 01/05/18 03:34 20 Muscle Strength and Tone: WNL Gait and Station: Steady (requires 1:1 monitoring with slightly unsteady gait this am), Unsteady S Medications Reviewed: Side Effects, Benefits of Medication, Risks Allergies Reviewed: Yes Mental Status Exam General Appearance: Casual, Well Groomed, Good Eye Contact, Cooperative, Polite , Good Interaction, No Unkept, No Tearful, No Psychomotor Agitation, No Psychomotor Retardation, No Bizarre Mannerisms, No Tics Speech: Clear, Spontaneous, Normal Rate, Normal Rhythm, Normal Volume, Normal Tone, No Delayed, No Slurred, No Garbled, No Rambling, No Inappropriate Mood: No Dysthmic/Depressed, Euthymic (smiles, interacts appropriately, frustrated. ), No Hyperthymic Affect: Full and Appropriate, Calm, No Anxious, No Agitated Thought Process: Organized, Goal Directed, No Loose Associations, No Flight of Ideas (minimal) Thought Content: No Suicidal Ideation, No Homicidal Ideation, No Delusions ( may be underlying), No Auditory Halllucinations, No Visual Hallucinations, No Thought Broadcasting, No Ideas of Reference, No Obsessions, No Compulsions Cognition: Alert & Oriented-Person, Alert & Oriented-Place, Alert & Oriented- Time, No [id number]-[id number]-[id number] (Only partially, at times discusses plans to make several millions buying autos and creating a utopia.) Memory: Immediate, Recent, Remote Intelligence: Average Insight Judgment: Poor (Currently impaired, but improving) Result Diagram: 01/06/18 0610 01/06/18 0610 [facility] Assessment and Plan Ghod-[id number] Encounter Date: Jan 06, 2018 Rhhe-ex-[id number] Encounter Time: 09:00 [facility] Plan: Necessary Precautions, Individual/Group Therapy, Admin/Titrate Meds, Educate Patient Tobacco Medications: Started Multpiple Antipsychotics Used: Yes Problems: (1) Bipolar disorder with psychotic features Optional Permanent Comment: appears to have been likely initiated by prednisone. Last Edited By: Jai Nascimento on Jan 04, 2018 13:54 Status: Acute Condition 1. will stop depakote, due to hyponatremia, and thrombocytopenia. 2. will initiate zyprexa QHS. and diazepam. 3. hearing this week. Vital Signs Date Time Temp Pulse Resp B/P (MAP) Pulse Ox O2 Delivery O2 Flow Rate FiO2 01/06/18 02:18 100.0 95 118/63 (81) 93 Nasal Cannula 3.0 01/05/18 03:34 20 JAI NASCIMENTO MD Jan 06, 2018 09:35
[2018-01-06 16:02] VITALS: BP 126/72
[2018-01-06 17:08] VITALS: BP 113/69
--- NOTE | 2018-01-06 19:57 | Hospitalist Consultation ---
History of Present Illness Requesting Physician Jai Wyatt MD Reason for Consult CLL patient with Fever Chief Complaint Low grade fevers with Tmax 102 F History of Present Illness Mr. Hagen is a 72-year-old male with PMH of COPD, active smoker, h/o CLL with high WBC admitted to [facility] for manic behavior. He has been stable until he developed low grade fevers lately. Today he had 102F fever and I was asked by Dr. Horvath to evaluate this patient for his fever in the presence of CLL. Patient was seen and evaluated and examined by me. He has had cough for few day but it has been better lately. He denies any dysuria or urgency. He feels better now and is afebrile. History Home Meds Reported Medications Olanzapine (ZYPREXA) 10 Mg Tablet, 10 MG PO QHS 01/08/18 [Brio] No Conflict Check 12/29/17 Albuterol Sulfate (PROVENTIL HFA) 6.7 Gm Inh, 1-2 PUFF INH 3-4XD, INH 12/29/17 Diphenhydramine Hcl (BENADRYL) 25 Mg Capsule, 50 MG PO HS, CAPSULE 12/29/17 Temazepam (RESTORIL) 30 Mg Capsule, 50 MG PO, CAPSULE 12/29/17 Multivitamin (MULTI VITAMIN DAILY) 1 Each Tablet, 1 EACH PO 12/29/17 Allergies: Coded Allergies: rituximab (Verified Allergy, Severe, UNKNOWN, 12/29/17) Penicillins (Verified Allergy, Unknown, 12/29/17) aspirin (Verified Allergy, Unknown, 12/30/17) ibuprofen (Verified Adverse Reaction, Intermediate, 12/30/17) Patient History: FH: cardiovascular disease FATHER BROTHER OR SISTER FH: suicide FATHER Hx Smoking: Yes Smoking Status: Current: Every Day Smoker Exposure to Second Hand Smoke?: Yes Caffeine Intake: Coffee, Soda Hx Alcohol Use: Yes Alcohol Used: Beer When Quit Alcohol?: 1969 Hx Substance Use Disorder: Yes ("tried it in the 60s") Social Drug Use: Former Social Drugs: Marijuana Amount Of Social Drug/s Used: EXPERIMENTED IN THE History of IV Drug Use: No Review of Systems Constitutional: Fever, No Weight Loss, No Weight Gain, No Chills, No Night Sweats Neurological: No Confusion, No Weakness, No Dizziness ENT: No Sore Throat Cardiovascular: No Chest Pain, No Palpitations Respiratory: Cough, No Shortness of Breath, No Wheezing Gastrointestinal: No Nausea, No Vomiting, No Diarrhea, No Constipation, No Abdominal Pain Genitourinary: No Dysuria, No Hematuria Musculoskeletal: No Pain, No Sprain, No Strain Psychiatric: No Depression, No Anxiety Exam Vital Signs Vital Signs Date Time Temp Pulse Resp B/P (MAP) Pulse Ox O2 Delivery O2 Flow Rate FiO2 01/08/18 13:05 98.7 96 18 116/62 (80) 94 Nasal Cannula 01/08/18 04:45 3.0 General Appearance: Alert, No Acute Distress, Afebrile Neuro: No Gross deficits Eyes: PERRLA ENT: Normal Cardiovascular: Normal Rhythm & Peripheral Pulses, No Edema Respiratory: No Respiratory Distress, Clear to Auscultation GI: Abd Soft and Non-Tender Extremities: Soft and Non Tender Psych: Alert & Oriented X3, Appropriate Mood & Affect Medical Decision Making Data Points Result Diagram: 01/07/1855701/07/1858 Pre-Admit Course Medical Record Review: Yes Assessment and Plan Problems: (1) Fever Status: Acute Assessment & Plan: His low grade fever could be associated with his CLL. He is not Neutropenic. I will get U/A, CXR, Repeat CBC and BMP in am I will start him on Tylenol 650mg po q6h prn I will also try NSAIDS for his fever and underlying inflammation I would broad cover him with Cipro and Augmentin if his fever spikes persist and are >102F, meanwhile I would take conservative measures. (2) CLL (chronic lymphocytic leukemia) Status: Chronic Assessment & Plan: His CLL is stable and he is not neutropenic. His TCP is likely due to Depakot and will repeat his CBC in am I will closely observe him (3) Bipolar disorder with psychotic features *Optional Permanent Comment*: appears to have been likely initiated by prednisone. Last Edited By: Jai Wyatt on Jan 04, 2018 13:54 Status: Chronic Assessment & Plan: Behavioral management as per Psych. Patient is off Depakot Time Spent on Plan of Care: < 30 min Copies to: JAI WYATT MD Venous Thromboembolism VTE Risk Physician Assess for VTE Risk: Yes Patient's VTE Risk: Low VTE Diagnostic Test 2 Days Prior to Admit: No Antithrombotics Is Pt On Any Antithrombotics?: No ISA HERRON MD Jan 06, 2018 19:57
[2018-01-06] MEDS ORDERED: OLANZapine 5 MG TAB PO SCH (21:00)
[2018-01-06] MEDS: hydrOXYzine PAMOATE 25 MG CAP PO SCH (21:19)
[2018-01-06] MEDS: MELATONIN 3 MG TAB PO SCH (21:19)
[2018-01-06] MEDS: OLANZapine 5 MG TAB PO SCH (21:20)
[2018-01-06] MEDS: DIAZEPAM 10 MG TAB PO SCH (21:20)
[2018-01-06 22:18] VITALS: BP 117/94
--- NOTE | 2018-01-06 22:37 | RADIOLOGY IMAGING REPORT ---
[place] [facility] [place] NAME: Freddy Hagen : 1945 MR: [id number] V: [id number] EXAM DATE: ORDERING PHYSICIAN: ISA HERRON TECHNOLOGIST: Location: [facility] Patient: Freddy Hagen : 1945 Visit/Account:[id number] Date of Sevice: 01/06/2018 CHEST PA AND LAT HISTORY: Fever, chest pain, and difficulty breathing when coughing. History of COPD. COMPARISON: 12/31/2017. TECHNIQUE: PA and lateral views of the chest. FINDINGS: Pulmonary: There is mild scarring or atelectasis at the lung bases, unchanged. No infiltrate. There i s no pneumothorax or pleural effusion. Cardiomediastinal: Cardiac and mediastinal silhouettes are within normal limits. The fullness at the inferior right hilum has improved, and this may have been projectional. There is mild aortic calcific ation. Bones/soft tissues: No acute osseous abnormality. There is degenerative change of the spine and of th e acromioclavicular joints. The visible abdomen is normal. IMPRESSION: 1. Mild bibasilar atelectasis or scarring, but no evidence of pneumonia. Report Dictated By: Alyssa Vieira at 01/06/2018 10:31 PM Report E-Signed By: Alyssa Vieira at 01/06/2018 10:33 PM WSN:[id number]
[2018-01-07 04:40] VITALS: BP 97/52
[2018-01-07] MEDS: SALMETEROL/FLUTIC 100/50 1 INH INH SCH (05:56)
[2018-01-07] MEDS: ALBUTEROL SULFATE 90 MCG/ACT 8.5 GM HNH INH PRN (06:01)
[2018-01-07 06:45] LABS: PLATELET COUNT, AUTOMATED 81 K/uL (150-450)
[2018-01-07] MEDS: busPIRone HCL 5 MG TAB PO SCH ×2 (08:29→21:06)
[2018-01-07] MEDS: MULTIVITAMINS PO SCH (08:29)
[2018-01-07] MEDS: SODIUM CHLORIDE 1 GR TAB PO SCH (08:29)
[2018-01-07 08:43] VITALS: BP 122/62
--- NOTE | 2018-01-07 08:54 | BHS Progress Note ---
[facility] - Subjective Progress Notes Subjective Patient interacting well with staff this AM, no evidence of any dorita exists. Patient has memory of grandiose delusions, that he seemingly is trying to resolve. Patient needs to remain on the unit, until arrangements for transfer to reside with his brother can be put in place, this will hopefully occur within the next week. Will have hospitalist continue to follow for hepatosplenomegaly and potential of infective process. Will look into treatment that patient will have in [place]. No medication changes. Suicidal Ideation: None Homicidal Ideation: None [facility] - Objective Physical Exam Vital Signs Vital Signs Date Time Temp Pulse Resp B/P (MAP) Pulse Ox O2 Delivery O2 Flow Rate FiO2 01/07/18 04:40 99.2 83 19 97/52 (67) 92 Nasal Cannula 3.0 Muscle Strength and Tone: WNL Gait and Station: Steady (requires 1:1 monitoring with slightly unsteady gait this am), Unsteady S Medications Reviewed: Side Effects, Benefits of Medication, Risks Allergies Reviewed: Yes Mental Status Exam General Appearance: Casual, Well Groomed, Good Eye Contact, Cooperative, Polite , Good Interaction Speech: Clear, Spontaneous, Normal Rate, Normal Rhythm, Normal Volume, Normal Tone Mood: Euthymic Affect: Full and Appropriate, Calm Thought Process: Organized, Goal Directed Thought Content: No Suicidal Ideation, No Homicidal Ideation, No Delusions ( may be underlying resolving grandiosity. ), No Auditory Halllucinations, No Visual Hallucinations, No Thought Broadcasting, No Ideas of Reference, No Obsessions, No Compulsions Cognition: Alert & Oriented-Person, Alert & Oriented-Place, Alert & Oriented- Time Memory: Immediate, Recent, Remote Intelligence: Average Insight Judgment: Poor Result Diagram: 01/07/18 0558 01/07/18 0558 [facility] Assessment and Plan [id number] Encounter Date: Jan 07, 2018 Ecfu-oh-Ifqe Encounter Time: 08:20 [facility] Plan: Necessary Precautions, Individual/Group Therapy, Admin/Titrate Meds, Educate Patient Tobacco Medications: Started Multpiple Antipsychotics Used: Yes Problems: (1) Bipolar disorder with psychotic features Optional Permanent Comment: appears to have been likely initiated by prednisone. Last Edited By: Jai Nascimento on Jan 04, 2018 13:54 Status: Chronic Condition 1. continue treatment. 2. no medication changes 3. solidify discharge plans, within next few days. 4. hospitalist to follow for CLL related concerns. JAI NASCIMENTO MD Jan 07, 2018 08:54
--- NOTE | 2018-01-07 11:51 | Hospitalist Progress Note ---
Subjective Progress Notes Subjective This patient has been on [facility] for acute dorita. His dorita has resolved, but he does have increased abdominal distention. Patient Complains of: Cardiovascular: No: Chest Pain Respiratory: No: Shortness of Breath Gastrointestinal: No Nausea, No Vomiting Physical Exam Vital Signs Date Time Temp Pulse Resp B/P (MAP) Pulse Ox O2 Delivery O2 Flow Rate FiO2 01/07/18 08:43 98.5 91 122/62 (82) 92 Nasal Cannula 3.0 01/07/18 04:40 19 Cardiovascular: Regular Rate and Rhythm Respiratory: Clear to Auscultation GI: Other (Distended, but no rebound or guarding.) Result Diagram: 01/07/18 0558 01/07/1858 Assessment and Plan Problems: (1) Fever Status: Acute Assessment & Plan: He has been having cyclic fevers, which are likely secondary leukemia. His chest x-ray showed scarring, but no evidence of pneumonia. His urine was also clear. (2) CLL (chronic lymphocytic leukemia) Status: Chronic Assessment & Plan: His WBC has been elevated, but stable. His platelets have also stabilized since stopping the Depakote. He does have some mild abdominal distention, but is not complaining of pain or constipation. He should follow up with his oncologist early next week to resume treatments. JUVENTINO GÓMEZ DO Jan 07, 2018 11:51
[2018-01-07] MEDS: ACETAMINOPHEN 325 MG TAB PO PRN (21:05)
[2018-01-07] MEDS: MELATONIN 3 MG TAB PO SCH (21:05)
[2018-01-07] MEDS: OLANZapine 5 MG TAB PO SCH (21:06)
[2018-01-07] MEDS: DIAZEPAM 10 MG TAB PO SCH (21:06)
[2018-01-07] MEDS: hydrOXYzine PAMOATE 25 MG CAP PO SCH (21:06)
[2018-01-08] MEDS: SALMETEROL/FLUTIC 100/50 1 INH INH SCH (05:55)
[2018-01-08] MEDS: SODIUM CHLORIDE 1 GR TAB PO SCH (08:15)
[2018-01-08] MEDS: busPIRone HCL 5 MG TAB PO SCH ×2 (08:15→21:28)
[2018-01-08] MEDS: ALBUTEROL SULFATE 90 MCG/ACT 8.5 GM HNH INH PRN (08:15)
[2018-01-08] MEDS: MULTIVITAMINS PO SCH (08:15)
--- NOTE | 2018-01-08 09:29 | BHS Progress Note ---
[facility] - Subjective Progress Notes Subjective Patient communicating well with and treatment team this AM. Patient alert and oriented, no evidence of dorita remains, Plan is for and brother to travel to unit tomorrow, weather permitting, and have possible discharge to their care. Patient denies abdominal pain and is refusing a scan of his abdomen at this time. Will have labs in AM, and hopefully continue stability and be able to discharge tomorrow to care of family members. Suicidal Ideation: None Homicidal Ideation: None S - Objective Physical Exam Vital Signs Vital Signs Date Time Temp Pulse Resp B/P (MAP) Pulse Ox O2 Delivery O2 Flow Rate FiO2 01/08/18 04:45 Nasal Cannula 3.0 01/07/18 23:03 97.0 01/07/18 08:43 91 122/62 (82) 92 01/07/18 04:40 19 Hematology Test 12/30/17 00:00 01/01/18 06:43 01/01/18 20:23 01/05/18 05:34 Free Thyroxine 1.07 ng/dl (0.78-2.19) Free Triiodothyronine 3.9 pg/mL (2.4-4.2) Magnesium Level 1.8 mg/dl (1.7-2.2) Influenza Virus Type A (PCR) Negative (NEGATIVE) Influenza Virus Type B (PCR) Negative (NEGATIVE) Valproic Acid (Depakene) Level 79.0 ug/ml Test 01/06/18 20:53 01/07/18 05:58 01/08/18 05:34 Urine Color Yellow Urine Clarity Clear Urine pH 5.0 pH (4.8-9.5) Urine Specific [place] 1.018 Urine Protein Negative mg/dL (NEGATIVE) Urine Glucose (UA) Negative mg/dL (NEGATIVE) Urine Ketones Negative mg/dL (NEGATIVE) Urine Blood Negative (NEGATIVE) Urine Nitrite Negative (NEGATIVE) Urine Bilirubin Negative (NEGATIVE) Urine Urobilinogen Negative mg/dL (0.2-1.9) Urine Leukocyte Esterase Negative (NEGATIVE) Urine RBC None /HPF (0-2/HPF) Urine WBC <1 /HPF (0-5/HPF) Urine Squamous Epithelial Cells Few /LPF (</=FEW) Urine Transitional Epithelial Cells Few /LPF (NONE-FEW) Urine Bacteria Negative /HPF (NONE-FEW) Urine Mucus None /HPF (NONE-FEW) Red Blood Count 5.00 M/uL (4.00-5.60) Mean Corpuscular Volume 78.3 fL (80.0-96.0) Mean Corpuscular Hemoglobin 26.3 pg (26.0-33.0) Mean Corpuscular Hemoglobin Concent 33.6 g/dL (32.0-36.0) Red Cell Distribution Width 17.9 % (11.5-14.5) Mean Platelet Volume 7.9 fL (7.2-11.1) Neutrophils (%) (Auto) % (39.4-72.5) Lymphocytes (%) (Auto) % (17.6-49.6) Monocytes (%) (Auto) % (4.1-12.4) Eosinophils (%) (Auto) % (0.4-6.7) Basophils (%) (Auto) % (0.3-1.4) Nucleated RBC Relative Count (auto) /100WBC Neutrophils # (Auto) K/uL (2.0-7.4) Lymphocytes # (Auto) K/uL (1.3-3.6) Monocytes # (Auto) K/uL (0.3-1.0) Eosinophils # (Auto) K/uL (0.0-0.5) Basophils # (Auto) K/uL (0.0-0.1) Nucleated RBC Absolute Count (auto) K/uL Neutrophils % (Manual) 15 % (39.4-72.5) Band Neutrophils % 4 % Lymphocytes % (Manual) 64 % (17.6-49.6) Atypical Lymphocytes % 14 % Monocytes % (Manual) 2 % (4.1-12.4) Eosinophils % (Manual) 0 % (0.4-6.7) Basophils % (Manual) 0 % (0.3-1.4) Promyelocytes % 1 % Smudge Cells Pres Polychromasia 1+ Peripheral Blood Smear Yes Y/N Sodium Level 128 mmol/L (137-145) Potassium Level 4.2 mmol/L (3.5-5.0) Chloride Level 94 mmol/L (98-107) Carbon Dioxide Level 25 mmol/L (22-30) Blood Urea Nitrogen 16 mg/dl (9-21) Creatinine 0.90 mg/dl (0.66-1.25) Glomerular Filtration Rate Calc > 60.0 Random Glucose 78 mg/dl (75-110) Calcium Level 8.6 mg/dl (8.4-10.2) Total Bilirubin 0.9 mg/dl (0.2-1.3) Aspartate Amino Transf (AST/SGOT) 55 U/L (0-35) Alanine Aminotransferase (ALT/SGPT) 52 U/L (0-56) Alkaline Phosphatase 179 U/L (0-126) Total Protein 4.9 gm/dl (6.3-8.2) Albumin 2.7 g/dl (3.5-5.0) Whole Blood Glucose 77 mg/DL (75-110) Chemistry Test 12/30/17 00:00 01/01/18 06:43 01/01/18 20:23 01/05/18 05:34 Free Thyroxine 1.07 ng/dl (0.78-2.19) Free Triiodothyronine 3.9 pg/mL (2.4-4.2) Magnesium Level 1.8 mg/dl (1.7-2.2) Influenza Virus Type A (PCR) Negative (NEGATIVE) Influenza Virus Type B (PCR) Negative (NEGATIVE) Valproic Acid (Depakene) Level 79.0 ug/ml Test 01/06/18 20:53 01/07/18 05:58 01/08/18 05:34 Urine Color Yellow Urine Clarity Clear Urine pH 5.0 pH (4.8-9.5) Urine Specific [place] 1.018 Urine Protein Negative mg/dL (NEGATIVE) Urine Glucose (UA) Negative mg/dL (NEGATIVE) Urine Ketones Negative mg/dL (NEGATIVE) Urine Blood Negative (NEGATIVE) Urine Nitrite Negative (NEGATIVE) Urine Bilirubin Negative (NEGATIVE) Urine Urobilinogen Negative mg/dL (0.2-1.9) Urine Leukocyte Esterase Negative (NEGATIVE) Urine RBC None /HPF (0-2/HPF) Urine WBC <1 /HPF (0-5/HPF) Urine Squamous Epithelial Cells Few /LPF (</=FEW) Urine Transitional Epithelial Cells Few /LPF (NONE-FEW) Urine Bacteria Negative /HPF (NONE-FEW) Urine Mucus None /HPF (NONE-FEW) White Blood Count 34.5 k/uL (4.5-11.0) Red Blood Count 5.00 M/uL (4.00-5.60) Hemoglobin 13.2 g/dL (14.0-18.0) Hematocrit 39.2 % (42.0-52.0) Mean Corpuscular Volume 78.3 fL (80.0-96.0) Mean Corpuscular Hemoglobin 26.3 pg (26.0-33.0) Mean Corpuscular Hemoglobin Concent 33.6 g/dL (32.0-36.0) Red Cell Distribution Width 17.9 % (11.5-14.5) Platelet Count 81 K/uL (150-450) Mean Platelet Volume 7.9 fL (7.2-11.1) Neutrophils (%) (Auto) % (39.4-72.5) Lymphocytes (%) (Auto) % (17.6-49.6) Monocytes (%) (Auto) % (4.1-12.4) Eosinophils (%) (Auto) % (0.4-6.7) Basophils (%) (Auto) % (0.3-1.4) Nucleated RBC Relative Count (auto) /100WBC Neutrophils # (Auto) K/uL (2.0-7.4) Lymphocytes # (Auto) K/uL (1.3-3.6) Monocytes # (Auto) K/uL (0.3-1.0) Eosinophils # (Auto) K/uL (0.0-0.5) Basophils # (Auto) K/uL (0.0-0.1) Nucleated RBC Absolute Count (auto) K/uL Neutrophils % (Manual) 15 % (39.4-72.5) Band Neutrophils % 4 % Lymphocytes % (Manual) 64 % (17.6-49.6) Atypical Lymphocytes % 14 % Monocytes % (Manual) 2 % (4.1-12.4) Eosinophils % (Manual) 0 % (0.4-6.7) Basophils % (Manual) 0 % (0.3-1.4) Promyelocytes % 1 % Smudge Cells Pres Polychromasia 1+ Peripheral Blood Smear Yes Y/N Glomerular Filtration Rate Calc > 60.0 Calcium Level 8.6 mg/dl (8.4-10.2) Total Bilirubin 0.9 mg/dl (0.2-1.3) Aspartate Amino Transf (AST/SGOT) 55 U/L (0-35) Alanine Aminotransferase (ALT/SGPT) 52 U/L (0-56) Alkaline Phosphatase 179 U/L (0-126) Total Protein 4.9 gm/dl (6.3-8.2) Albumin 2.7 g/dl (3.5-5.0) Whole Blood Glucose 77 mg/DL (75-110) Toxicology Test 01/05/18 05:34 Valproic Acid (Depakene) Level 79.0 ug/ml Urinalysis Test 01/06/18 20:53 Urine Color Yellow Urine Clarity Clear Urine pH 5.0 pH (4.8-9.5) Urine Specific [place] 1.018 Urine Protein Negative mg/dL (NEGATIVE) Urine Glucose (UA) Negative mg/dL (NEGATIVE) Urine Ketones Negative mg/dL (NEGATIVE) Urine Blood Negative (NEGATIVE) Urine Nitrite Negative (NEGATIVE) Urine Bilirubin Negative (NEGATIVE) Urine Urobilinogen Negative mg/dL (0.2-1.9) Urine Leukocyte Esterase Negative (NEGATIVE) Urine RBC None /HPF (0-2/HPF) Urine WBC <1 /HPF (0-5/HPF) Urine Squamous Epithelial Cells Few /LPF (</=FEW) Urine Transitional Epithelial Cells Few /LPF (NONE-FEW) Urine Bacteria Negative /HPF (NONE-FEW) Urine Mucus None /HPF (NONE-FEW) Muscle Strength and Tone: WNL Gait and Station: Steady (requires 1:1 monitoring with slightly unsteady gait this am), Unsteady [facility] Medications Reviewed: Side Effects, Benefits of Medication, Risks Allergies Reviewed: Yes Mental Status Exam General Appearance: Casual, Well Groomed, Good Eye Contact, Cooperative, Polite , Good Interaction Speech: Clear, Spontaneous, Normal Rate, Normal Rhythm, Normal Volume, Normal Tone Mood: Euthymic Affect: Full and Appropriate, Calm Thought Process: Organized, Goal Directed Thought Content: No Suicidal Ideation, No Homicidal Ideation, No Delusions ( may be underlying resolving grandiosity. ), No Auditory Halllucinations, No Visual Hallucinations, No Thought Broadcasting, No Ideas of Reference, No Obsessions, No Compulsions Cognition: Alert & Oriented-Person, Alert & Oriented-Place, Alert & Oriented- Time Memory: Immediate, Recent, Remote Intelligence: Average Insight Judgment: Poor Result Diagram: 01/07/1855701/07/18557 [facility] Assessment and Plan [id number] Encounter Date: Jan 08, 2018 [id number] Encounter Time: 08:40 S Plan: Necessary Precautions, Individual/Group Therapy, Admin/Titrate Meds, Educate Patient Tobacco Medications: Started Multpiple Antipsychotics Used: Yes Problems: (1) Bipolar disorder with psychotic features Optional Permanent Comment: appears to have been likely initiated by prednisone. Last Edited By: Jai Nascimento on Jan 04, 2018 13:54 Status: Chronic Condition 1. continue treatment. 2. plan for possible discharge tomorrow. Vital Signs Date Time Temp Pulse Resp B/P (MAP) Pulse Ox O2 Delivery O2 Flow Rate FiO2 01/08/18 04:45 Nasal Cannula 3.0 01/07/18 23:03 97.0 01/07/18 08:43 91 122/62 (82) 92 01/07/18 04:40 19 JAI NASCIMENTO MD Jan 08, 2018 09:29
[2018-01-08] MEDS ORDERED: OLAN10TA21 PO (12:01)
[2018-01-08] MEDS: HYPROMELLOSE 0.4% LUB 15ML BTL OD PRN ×3 (12:29→21:26)
[2018-01-08 13:05] VITALS: BP 116/62
[2018-01-08 14:15] VITALS: BP 120/64
[2018-01-08 18:30] VITALS: BP 122/58
[2018-01-08 20:17] VITALS: BP 121/60
[2018-01-08] MEDS ORDERED: OLANZapine 5 MG TAB PO PRN (20:55)
[2018-01-08] MEDS ORDERED: OLANZapine 5 MG TAB PO SCH (21:00)
[2018-01-08] MEDS: ACETAMINOPHEN 325 MG TAB PO PRN (21:27)
[2018-01-08] MEDS: OLANZapine 5 MG TAB PO SCH (21:28)
[2018-01-08] MEDS: hydrOXYzine PAMOATE 25 MG CAP PO SCH (21:29)
[2018-01-08] MEDS: MELATONIN 3 MG TAB PO SCH (21:29)
[2018-01-08] MEDS: DIAZEPAM 10 MG TAB PO SCH (21:29)
[2018-01-09] MEDS: OLANZapine 5 MG TAB PO SCH (01:50)
[2018-01-09] MEDS: HYPROMELLOSE 0.4% LUB 15ML BTL OD PRN (02:13)
[2018-01-09 04:15] VITALS: BP 113/56
[2018-01-09] MEDS: SALMETEROL/FLUTIC 100/50 1 INH INH SCH (05:57)
[2018-01-09] MEDS: SODIUM CHLORIDE 1 GR TAB PO SCH (07:48)
[2018-01-09] MEDS: MULTIVITAMINS PO SCH (07:48)
[2018-01-09] MEDS: busPIRone HCL 5 MG TAB PO SCH (07:48)
[2018-01-09 07:54] LABS: PLATELET COUNT, AUTOMATED 94 K/uL (150-450)
--- NOTE | 2018-01-09 10:02 | BHS Progress Note ---
[facility] - Subjective Progress Notes Subjective "Today is the happiest day for me." Denies depression, anxiety, anger Speech non pressured, denies racing thoughts, dorita resolved Case reviewed with Dr. Wyatt, psychiatrist Review discharge medications, to assist with medication administration once dischraged Conference call with , Olivia who is traveling with patient's brother for transport home Suicidal Ideation: None Homicidal Ideation: None S - Objective Physical Exam Muscle Strength and Tone: WNL Gait and Station: Steady (requires 1:1 monitoring with slightly unsteady gait this am), Unsteady [facility] Medications Reviewed: Side Effects, Benefits of Medication, Risks Allergies Reviewed: Yes Mental Status Exam General Appearance: Casual, Well Groomed, Good Eye Contact, Cooperative, Polite , Good Interaction Speech: Clear, Spontaneous, Normal Rate, Normal Rhythm, Normal Volume, Normal Tone Mood: Euthymic (hopeful for discharage - agrees with ongoing oncology management for CLL) Affect: Full and Appropriate, Calm Thought Process: Organized, Goal Directed Thought Content: No Suicidal Ideation, No Homicidal Ideation, No Delusions ( may be underlying resolving grandiosity. ), No Auditory Halllucinations, No Visual Hallucinations, No Thought Broadcasting, No Ideas of Reference, No Obsessions, No Compulsions Cognition: Alert & Oriented-Person, Alert & Oriented-Place, Alert & Oriented- Time Memory: Immediate, Recent, Remote Intelligence: Average Insight Judgment: No Poor (Dorita resolved, agrees with ongoing follow up, oncology follow up), Fair Result Diagram: 01/09/18 0800 01/09/18 0633 Lab Vital Signs Date Time Temp Pulse Resp B/P (MAP) Pulse Ox O2 Delivery O2 Flow Rate FiO2 01/09/18 06:00 75 94 Nasal Cannula 2.0 01/09/18 04:15 98.0 113/56 (75) 01/08/18 22:50 93.0 01/08/18 18:30 22 Allergies Coded Allergies rituximab (Verified Allergy, Severe, UNKNOWN, 12/29/17) Penicillins (Verified Allergy, Unknown, 12/29/17) aspirin (Verified Allergy, Unknown, 12/30/17) ibuprofen (Verified Adverse Reaction, Intermediate, 12/30/17) [facility] Assessment and Plan [id number] Encounter Date: Jan 09, 2018 [id number] Encounter Time: 10:30 [facility] Plan: Necessary Precautions, Individual/Group Therapy, Admin/Titrate Meds, Educate Patient Tobacco Medications: Started Multpiple Antipsychotics Used: Yes Problems: (1) Bipolar disorder with psychotic features Optional Permanent Comment: appears to have been likely initiated by prednisone. Last Edited By: Eduardo Wyatt on Jan 04, 2018 13:54 Status: Chronic (2) CLL (chronic lymphocytic leukemia) Status: Chronic Condition Discharge medications reviewed Discharge to home today, and brother to provide transportation back to [place] Recommend immediate consultation with oncologist To wear oxygen for transport home To take medications only as prescribed, to assist with medications FABRIZIO GATES NP Jan 09, 2018 10:02
[2018-01-09] MEDS ORDERED: FLUT1DIS27 IH (13:32)
[2018-01-09] MEDS ORDERED: BUS5 PO (13:33)
[2018-01-09] MEDS ORDERED: MELA3TAB31 PO (13:34)
[2018-01-09] MEDS ORDERED: DIA5 PO (13:35)
[2018-01-09] MEDS ORDERED: HYDR50CA47 PO (13:36)
[2018-01-09] MEDS ORDERED: ACET-1966 PO (13:38)
[2018-01-09] MEDS ORDERED: DEXT15DR OU (13:38)
[2018-01-09 14:00] VITALS: BP 112/60
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
== END 2018-01-09 15:00 | disposition home or self-care (01) | DRG 885 ==
LOC: BHS 21:58
PROVIDERS: ADMIT Psychiatry & Neurology Psychiatry; ATTEND Psychiatry & Neurology Psychiatry
DX: F31.2 Bipolar disorder, current episode manic severe with psychotic features (principal); C91.90 Lymphoid leukemia, unspecified not having achieved remission; E87.1 Hypo-osmolality and hyponatremia; F06.33 Mood disorder due to known physiological condition with manic features; T38.0X5A Adverse effect of glucocorticoids and synthetic analogues, initial encounter; J44.9 Chronic obstructive pulmonary disease, unspecified; F17.210 Nicotine dependence, cigarettes, uncomplicated; R50.81 Fever presenting with conditions classified elsewhere; F41.9 Anxiety disorder, unspecified; D69.59 Other secondary thrombocytopenia; T42.6X5A Adverse effect of other antiepileptic and sedative-hypnotic drugs, initial encounter; V47.0XXA Car driver injured in collision with fixed or stationary object in nontraffic accident, initial encounter; Y93.89 Activity, other specified; Y92.410 Unspecified street and highway as the place of occurrence of the external cause; Y99.8 Other external cause status; Y92.230 Patient room in hospital as the place of occurrence of the external cause; Z81.1 Family history of alcohol abuse and dependence; Z88.0 Allergy status to penicillin; Z88.8 Allergy status to other drugs, medicaments and biological substances; Z92.21 Personal history of antineoplastic chemotherapy; Z91.128 Patient's intentional underdosing of medication regimen for other reason
CPT/HCPCS: 36415; 36416; 70496; 71046; 80164; 80305; 80320; 80329; 81001; 82040; 82247; 82310; 82374; 82435; 82565; 82947; 82948; 83735; 84075; 84132; 84155; 84295; 84439; 84443; 84450; 84460; 84481; 84520; 85025; 87502; 93005; 94640; 99285; Q0161; Q0177; Q9967